=== PATIENT | male | born 2000 | race Caucasian/White ===

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

== ENCOUNTER 2020-10-18 16:44 | Emergency (ER) | payer SELFPAY ==
[~2020-10-18] VITALS: Ht 172.7 cm; Wt 85.7 kg
[2020-10-18] MEDS ORDERED: MELOXICAM7.5 MG PO (17:26)
== END 2020-10-18 18:08 | disposition home or self-care (01) ==
LOC: ED 16:44
DX: S62.663A Nondisplaced fracture of distal phalanx of left middle finger, initial encounter for closed fracture (principal); W22.8XXA Striking against or struck by other objects, initial encounter; Z88.5 Allergy status to narcotic agent
CPT/HCPCS: 73140; 99283-25; A9270

== ENCOUNTER 2021-01-17 07:45 | Emergency (ER) | payer SELFPAY ==
[~2021-01-17] VITALS: Ht 170.2 cm; Wt 85.0 kg
[~2021-01-17 07:45] MED LIST changes: +MELOXICAM7.5 MG PO
[2021-01-17] MEDS ORDERED: HYDROCODON-ACE1 EA10 PO (09:30)
[2021-01-17] MEDS ORDERED: DOXYCYCLINE HYC50 MG PO (09:46)
== END 2021-01-17 10:09 | disposition home or self-care (01) ==
LOC: ED 07:45
DX: N45.1 Epididymitis (principal); Z88.5 Allergy status to narcotic agent
CPT/HCPCS: 76870; 81001; 87491; 96372; 99284-25; J0696

== ENCOUNTER 2024-12-15 23:53 | Emergency (ER) | payer OTHER ==
[~2024-12-15] VITALS: Ht 170.2 cm; Wt 80.0 kg
[~2024-12-15 23:53] MED LIST changes: +DOXYCYCLINE HYC50 MG PO; +HYDROCODON-ACE1 EA10 PO
[2024-12-16] MEDS ORDERED: LIDOCAINE & ANTACID 35 ML BTL PO ONE (00:15)
[2024-12-16 00:18] LABS: BASOPHILS 0.5 % (0.2-1.2); EOSINOPHILS 1.4 % (0.8-7.0); LYMPHOCYTES 51.9 % (21.8-53.1); MCH 31.0 PG (25.7-32.2); MCHC 33.5 g/dL (32.3-36.5); MCV 92.5 fL (79.0-92.2); MONOCYTES 6.3 % (5.3-12.2); NEUTROPHILS 39.8 % (34.0-67.9); RBC 4.55 M/uL (4.63-6.08)
[2024-12-16 00:33] LABS: ALT (SGPT) 27.0 U/L (14-59); AST (SGOT) 19.0 U/L (15-37); GLOMERULAR FILTRATION RATE,EST 97.0 mL/min (>60); PROTEIN, TOTAL 7.4 g/dL (6.4-8.2); UREA NITROGEN 18.0 mg/dL (7-18)
[2024-12-16] MEDS ORDERED: HYDROmorphone HCL 1 MG/ML SYR IV PRN (01:00)
[2024-12-16] MEDS ORDERED: PROTONIX40 MG PO (02:18)
[2024-12-16 02:27] VITALS: BP 108/69
[2024-12-16] MEDS ORDERED: PANTOPRAZOLE SODIUM 40 MG TABEC PO ONE (02:30)
== END 2024-12-16 02:28 | disposition home or self-care (01) ==
LOC: ED 23:53
PROVIDERS: Emergency Medicine
DX: R10.13 Epigastric pain (principal); Z88.5 Allergy status to narcotic agent; Z79.899 Other long term (current) drug therapy
CPT/HCPCS: 36415; 76705; 80053; 83690; 83735; 85025; 96374; 99284-25; A9270; J2405